=== PATIENT | male | born 1950 | race Caucasian/White ===

== ENCOUNTER 2021-09-18 06:00 | Day surgery (SDC) | payer MEDICARE ==
[2021-09-13 15:16] VITALS: BMI 30.8
[2021-09-18] MEDS ORDERED: Lidocaine 1% MPF 2 ML VIAL ONE (06:25)
[2021-09-18] MEDS ORDERED: PROPOFOL 20 ML ONE (07:18)
== END 2021-09-18 08:10 | disposition home or self-care (01) ==
LOC: CSHSDC 06:00
PROVIDERS: ATTEND Otolaryngology Otolaryngic Allergy
DX: G47.33 Obstructive sleep apnea (adult) (pediatric) (principal); Z79.899 Other long term (current) drug therapy; I10 Essential (primary) hypertension
CPT/HCPCS: J2704

== ENCOUNTER 2025-02-03 08:49 | Outpatient (CLI) | payer MEDICARE | END 2025-02-03 08:50 | disposition home or self-care (01) | LOC: CSHSLEEP 08:49 | PROVIDERS: ATTEND Internal Medicine Critical Care Medicine | DX: G47.33 Obstructive sleep apnea (adult) (pediatric) (principal) | CPT/HCPCS: 95811 ==